=== PATIENT | female | born 1995 ===

== ENCOUNTER 2019-05-10 18:03 | Inpatient (IN) | payer BC, OTHER ==
[2019-05-10 19:02] LABS: Bilirubin Negative (Negative); Blood, Urine 3+ (Negative); Clarity Clear (Clear); Glucose, Urine (Dipstick) Normal (Negative); Leukocyte Negative Leu/uL (Negative); Nitrite Negative (Negative); Protein, Urine (Dipstick) 30 mg/dL (Neg-Trace); RBC/HPF 0-3 HPF (0-3); Squamous Epithelial 0-3 HPF (0-3); Urobilinogen Normal mg/dL (Less than 2); WBC/HPF 0-3 HPF (0-3)
[2019-05-10 19:05] LABS: Bacteria/HPF 1+ HPF (None Seen)
[2019-05-10] MEDS ORDERED: Ondansetron PF 4 MG/2 ML Vial ONE (19:12)
[2019-05-10 19:13] LABS: #Basophils 0.1 thou/uL (0.0-0.2); #Eosinphils 0.1 thou/uL (0.0-0.7); #Lymphocytes 1.7 thou/uL (1.20-3.40); #Monocytes 0.6 thou/uL (0.11-0.59); %Basophils 0.5 % (0.0-1.0); %Eosinophils 0.9 % (0.0-10.0); %Lymphocytes 16.6 % (21.0-51.0); %Monocytes 5.4 % (0.0-10.0); %Neutrophils 76.7 % (42.0-75.0); Hemoglobin 13.5 g/dL (12.0-16.0); Mean Corpuscular HGB CONC 33.4 g/dL (32.0-36.0); Mean Corpuscular Hemoglobin 29.3 pg (27.0-31.0); Mean Corpuscular Volume 87.7 fL (78.0-98.0); Mean Platelet Volume 7.1 fL (7.4-10.4); Platelet Count 205 thou/uL (130-400); RBC Distribution Width 12.1 % (11.5-14.5); Red Blood Cell (RBC) Count 4.62 mill/uL (4.20-5.40); White Blood Cell (WBC) Count 10.4 thou/uL (4.8-10.8)
[2019-05-10 19:35] LABS: BHCG - Serum Negative (NEGATIVE); Pregs Control Background? CLEAR/WHITE (CLR/WHITE); Pregs Control Bar Appear? YES (CONTROL BAR)
[2019-05-10 19:44] LABS: ALT (SGPT) 322 U/L (8-55); AST (SGOT) 1187 U/L (5-34); Albumin 4.3 g/dL (3.5-5.0); Alkaline Phosphatase 57 U/L (40-110); Anion Gap 12 mmol/L (10-20); BUN (Urea Nitrogen) 10 mg/dL (7.0-18.7); Bilirubin, Total 0.5 mg/dL (0.2-1.2); Calc. Creatinine Clearance 0 mL/min (70-130); Calcium 9.3 mg/dL (7.8-10.44); Carbon Dioxide 27 mmol/L (22-29); Chloride 106 mmol/L (98-107); Estimated GFR-MDRD Greater than 90; Globulin 2.8 g/dL (2.4-3.5); Glucose 101 mg/dL (70-105); Potassium 3.9 mmol/L (3.5-5.1); Protein, Total 7.1 g/dL (6.0-8.3); Sodium 141 mmol/L (136-145)
[2019-05-10 20:13] LABS: CK (CPK) Greater than 40000 U/L (29-168)
--- NOTE | 2019-05-10 20:55 | PDOC.FPRHP ---
- History of Present Illness Chief Complaint: dark urine History of Present Illness: Patient is a previously healthy 24-year-old female who presents after urinating dark brown urine earlier today. She notes that she had not been working out for the past 2-3 months, and this past Tuesday she began lifting heavy weights again. She again lifted weights on Tuesday. She focused mostly on her leg muscles and reports today her legs have felt very swollen, especially her thighs. As she has continued to urinate here in ED, she notes her urine looks bloody. Denies dysuria, lower back pain, abdominal pain. She has never had this problem before. ED Course: received 2L NS - Allergies/Adverse Reactions Allergies Allergy/AdvReac Type Severity Reaction Status Date / Time No Known Drug Allergies Allergy Verified 05/11/19 00:34 - Home Medications Medication Instructions Recorded Confirmed Type No Known 05/10/19 05/10/19 History - History PMHx: Hx of prolonged UTI for 2.5 years. Resolved for 6 months now. - anxiety PSHx: denies FHx: - denies Social: - Denies smoking. - social alcohol drinker. - no drugs. - Review of Systems General: denies: fever/chills, weight/appetite/sleep changes, night sweats Eyes: denies: eye pain ENT: denies: nasal congestion Respiratory: denies: cough, shortness of breath Cardiovascular: denies: chest pain, palpitation, edema Gastrointestinal: denies: nausea, vomiting, diarrhea, abdominal pain Genitourinary: denies: dysuria Skin: denies: rashes, jaundice Musculoskeletal: reports: pain, stiffness, swelling (in lower extremities b/l) Neurological: denies: numbness, weakness Psychological: reports: anxiety. denies: depression - Vital signs BP: 96/54 HR: 86 RR: 20 Tmax: 98.9 Pox: 100% on RA Wt: 57 kg - Physical Exam Constitutional: NAD HEENT: normocephalic and atraumatic, PERRLA, EOMI, conjunctiva clear, grossly normal vision, grossly normal hearing, MMM, oropharynx clear, good dention Neck: supple, trachea midline, no thyromegaly Heart: RRR, normal S1/S2, no murmurs/rubs/gallops, no edema Lungs: CTAB, no respiratory distress Abdomen: soft, non-tender, bowel sounds present, no masses/distention Musculoskeletal: normal structure Neurological: no focal deficit Skin: no rash/lesions, good turgor Heme/Lymphatic: no unusual bruising or bleeding Psychiatric: normal mood and affect FMR H&P: Results - Labs Result Diagrams: 05/11/19 05:27 05/11/19 05:27 Lab results: WBC 10.4 thou/uL (4.8-10.8) 05/10/19 18:57 Hgb 13.5 g/dL (12.0-16.0) 05/10/19 18:57 Hct 40.5 % (36.0-47.0) 05/10/19 18:57 MCV 87.7 fL (78.0-98.0) 05/10/19 18:57 Plt Count 205 thou/uL (130-400) 05/10/19 18:57 Neutrophils % 76.7 % (42.0-75.0) H 05/10/19 18:57 Sodium 141 mmol/L (136-145) 05/10/19 18:57 Potassium 3.9 mmol/L (3.5-5.1) 05/10/19 18:57 Chloride 106 mmol/L (98-107) 05/10/19 18:57 Carbon Dioxide 27 mmol/L (22-29) 05/10/19 18:57 BUN 10 mg/dL (7.0-18.7) 05/10/19 18:57 Creatinine 0.79 mg/dL (0.6-1.1) 05/10/19 18:57 Glucose 101 mg/dL (70-105) 05/10/19 18:57 Lactic Acid 1.0 mmol/L (0.5-2.2) 05/10/19 18:57 Calcium 9.3 mg/dL (7.8-10.44) 05/10/19 18:57 Total Bilirubin 0.5 mg/dL (0.2-1.2) 05/10/19 18:57 AST 1187 U/L (5-34) H 05/10/19 18:57 ALT 322 U/L (8-55) H 05/10/19 18:57 Alkaline Phosphatase 57 U/L (40-110) 05/10/19 18:57 Creatine Kinase Greater than 84087 U/L (29-168) H 05/10/19 18:57 Serum Total Protein 7.1 g/dL (6.0-8.3) 05/10/19 18:57 Albumin 4.3 g/dL (3.5-5.0) 05/10/19 18:57 Urine Ketones Negative mg/dL (Negative) 05/10/19 18:43 Urine Blood 3+ (Negative) A 05/10/19 18:43 Urine Nitrite Negative (Negative) 05/10/19 18:43 Ur Leukocyte Esterase Negative Meaghan/uL (Negative) 05/10/19 18:43 Urine RBC 0-3 HPF (0-3) 05/10/19 18:43 Urine WBC 0-3 HPF (0-3) 05/10/19 18:43 Ur Squamous Epith Cells 0-3 HPF (0-3) 05/10/19 18:43 Urine Bacteria 1+ HPF (None Seen) A 05/10/19 18:43 FMR H&P: A/P - Problem List (1) Rhabdomyolysis Current Visit: Yes Status: Acute Code(s): M62.82 - RHABDOMYOLYSIS (2) Anxiety Current Visit: Yes Status: Chronic Code(s): F41.9 - ANXIETY DISORDER, UNSPECIFIED - Plan 24 yo previously healthy female admitted for: Rhabdomyolysis, first episode - s/p intense, rapid workout. Pt denied taking any supplements or performance- enhancing agents - Fluid resuscitate: LR at 250 mL/hr - Repeat CK, Magnesium, phosphorus, CMP and CBC in AM - CK >40,000 - Transaminitis secondary to muscle breakdown, will trend - Creatinine and BUN appear normal currently. - Strict I/O, goal of 3 mL/kg/hr of urine output - encourage oral hydration Anxiety - monitor. Pt does not take home medications. VTE ppx: low risk, ambulate gently Code: full Diet: regular Disposition/LOS: admit to inpatient medical. Expected LOS > 48H. FMR H&P: Upper Level - Plan Date/Time: 05/10/192051 PCP: REGGIE HPI: This is a 24 yo F being admitted for rhabdomyolysis. She has no significant PMH except for chronic UTIs now resolved. She states that this week she started lifting weight aggressively and she had not worked out in months. She was having leg pain for the last few days but tonight she developed dark urine which prompted her to come into the ED for evaluation. She denies worsening or excruciating pain in the legs, able to ambulate to restroom w/o difficulty. She denies burning or blood with urination. REVIEW OF SYSTEMS: Gen: no fever, chills, or sweats Neuro: denies headache Eyes: no visual changes ENT: no hearing changes, no sore throat, no congestion Resp: denies cough, SOB Card: denies CP, palpitations GI: no N/V/D, no abdominal pain Heme: no easy bruising/bleeding Skin: no rash, no erythema PHYSICAL EXAMINATION: General: NAD, alert and oriented x3 HEENT: PERRLA, EOMI, normal sclera, oropharynx without erythema or exudate Neck: Supple. Full ROM. Heart/Cardiovascular System: RRR, Cap refill < 3 seconds, no rub, no murmur Lungs/Respiratory System: CTA-B, no resp distress Abdomen/Gastro-Intestinal System: no abdominal tenderness, normal bowel sounds Extremities: Warm extremities. No cyanosis or edema Neuro: No gross deficits appreciated. CN 2-12 grossly intact Psychiatry: Awake, Alert and cooperative with exam Skin: No lesions, rashes, or ulcers Musculoskeletal: Full ROM, no pain to palpation at gastrocnemius bilaterally, no pain to palpation at the thighs, ambulates w/o difficulty A/P: # Rhabdomyolysis 2/2 workout - CK >40,000, elevated transaminases - s/p 3L in ED, cont LR at 250ml/hr, target UOP 3ml/kg/hr - Cr 0.79, trend - Mag, phos, K, Ca appropriate - Monitor for compartment syndrome, no signs/symptoms at this time Fluids: LR 250ml/hr Code status: full PPx: low risk Dispo: 1-2 days Addendum - Attending - Attending Attestation Date/Time: 05/10/19 4590 I personally evaluated the patient and discussed the management with Dr. Skaggs /Alana I agree with the History, Examination, Assessment and Plan documented above with any addition or exceptions noted below. See my event note for details.
[2019-05-10 21:26] LABS: Magnesium 1.8 mg/dL (1.6-2.6); Phosphorus 3.6 mg/dL (2.3-4.7)
[2019-05-10 22:42] VITALS: BMI 23.1
[2019-05-10] MEDS: Lactated Ringer's 1,000 ML IV SCH (23:03)
--- NOTE | 2019-05-10 23:30 | PDOC.EVN ---
Event Note - Event Note Event Note: 24 yo WF no PMH. Started intensive weight lifting program on Tuesday with repeat activity on Tuesday. Reported significant quadracep pain during last 2 days. Noted urine was brown this afternoon and came to hospital. Exam unremarkable. Labs showed elevated LFTs approx 3x ULN and CPK >40k. electrolytes negative. Admit for rhabdomyolysis. Receive 2 L IV crystaloid in ER. continue LR 200 mL/ hr. Repeat CMP and CPK in AM. Inpatient, medical >2 midnights.
[2019-05-11] MEDS: Lactated Ringer's 1,000 ML IV SCH ×6 (02:51→22:32)
[2019-05-11 05:38] LABS: #Eosinphils 0.1 thou/uL (0.0-0.7); #Lymphocytes 2.1 thou/uL (1.20-3.40); #Monocytes 0.5 thou/uL (0.11-0.59); #Neutrophils 4.1 thou/uL (1.40-6.50); %Basophils 0.4 % (0.0-1.0); %Eosinophils 1.8 % (0.0-10.0); %Monocytes 6.7 % (0.0-10.0); Hemoglobin 11.5 g/dL (12.0-16.0); Mean Corpuscular HGB CONC 33.8 g/dL (32.0-36.0); Mean Corpuscular Hemoglobin 29.7 pg (27.0-31.0); Mean Corpuscular Volume 87.8 fL (78.0-98.0); Mean Platelet Volume 7.1 fL (7.4-10.4); Platelet Count 152 thou/uL (130-400); Red Blood Cell (RBC) Count 3.89 mill/uL (4.20-5.40); White Blood Cell (WBC) Count 6.8 thou/uL (4.8-10.8)
[2019-05-11] MEDS: Acetaminophen 325 MG TAB PO PRN ×2 (05:48→18:22)
[2019-05-11 06:03] LABS: ALT (SGPT) 347 U/L (8-55); AST (SGOT) 1282 U/L (5-34); Albumin 3.2 g/dL (3.5-5.0); Alkaline Phosphatase 41 U/L (40-110); Anion Gap 9 mmol/L (10-20); BUN (Urea Nitrogen) 6 mg/dL (7.0-18.7); Bilirubin, Total 0.7 mg/dL (0.2-1.2); Calc. Creatinine Clearance 113 mL/min (70-130); Calcium 7.9 mg/dL (7.8-10.44); Carbon Dioxide 26 mmol/L (22-29); Chloride 111 mmol/L (98-107); Estimated GFR-MDRD Greater than 90; Glucose 91 mg/dL (70-105); Magnesium 1.7 mg/dL (1.6-2.6); Phosphorus 3.8 mg/dL (2.3-4.7); Potassium 4.1 mmol/L (3.5-5.1); Protein, Total 5.2 g/dL (6.0-8.3); Sodium 142 mmol/L (136-145)
--- NOTE | 2019-05-11 06:10 | PDOC.FM ---
- Subjective Subjective: Pt states she is feeling better this morning. Still having pain in her legs, primarily right medial. States they feel sore and swollen. Is able to ambulate without difficulty. Notes urinating often through the night. States her urine is less brown and is starting to clear up. - Objective Vital Signs & Weight: Vital Signs (12 hours) Temp Pulse Resp BP Pulse Ox 05/11/19 03:46 98.0 F 82 18 116/68 99 05/10/19 23:50 99.0 F 84 18 100/65 98 05/10/19 23:07 100 05/10/19 22:42 98.9 F 86 20 96/54 L 100 Weight Weight 57.516 kg Result Diagrams: 05/11/19 05:27 05/11/19 05:27 Phys Exam - Physical Examination Constitutional: NAD HEENT: moist MMs, sclera anicteric Neck: full ROM Respiratory: no wheezing, no rales, no rhonchi, clear to auscultation bilateral Cardiovascular: RRR, no significant murmur Gastrointestinal: soft, non-tender, no distention, positive bowel sounds Musculoskeletal: no edema, pulses present Diffuse myalgial tenderness to quadriceps Neurological: non-focal, moves all 4 limbs Psychiatric: normal affect, A&O x 3 Skin: no rash, cap refill <2 seconds Dx/Plan (1) Rhabdomyolysis Code(s): M62.82 - RHABDOMYOLYSIS Status: Acute (2) Anxiety Code(s): F41.9 - ANXIETY DISORDER, UNSPECIFIED Status: Chronic - Plan Plan: Rhabdomyolysis, first episode - Fluid resuscitate: LR at 250 mL/hr - Transaminases are still elevated, slightly worse - trend afternoon CMP - CK still >40,000 - trend w/ afternoon labs - Creatinine and BUN appear normal currently. - urinalysis and urine myoglobin ordered - Strict I/O, goal of 3 mL/kg/hr of urine output - Output not yet recorded this morning - Pt reports urinating almost every 30 minutes and clearing of urine appearance - Will continue to titrate IVF based on laboratory findings - encourage oral hydration Anxiety - monitor. Pt does not take home medications. VTE ppx: low risk, ambulate gently Code: full Diet: regular Disposition/LOS: Admit to inpatient medical. Continue aggressive IVF rehydration and chemistry monitoring. Addendum - Attending - Attending Attestation Date/Time: 05/11/19 8512 I personally evaluated the patient and discussed the management with Dr. Clement. I agree with the History, Examination, Assessment and Plan documented above with any addition or exceptions noted below. Patient here with rhabdo suspected due to re-initiation of her intense workout regimen. Her CK continues to be higher than measurable by this institutions equipment. However, her urine has cleared up. She did have evidence of myoglobinuria on UA, but renal function stable. Continue aggressive IV fluid hydration, and strict I/O with titration of fluids to adequate UOP. Assuming her CK is barely over 40,000, anticipate 4-5 days hospitalization required. Encouraged ambulation to help prevent peripheral edema.
[2019-05-11 06:28] LABS: CK (CPK) Greater than 40000 U/L (29-168)
[2019-05-11 10:15] LABS: Squamous Epithelial None Seen HPF (0-3); WBC/HPF 0-3 HPF (0-3)
[2019-05-11 10:21] LABS: Bacteria/HPF 1+ HPF (None Seen)
[2019-05-11 10:29] LABS: Amphetamine Not Detected (NotDetected); Barbiturates Screen Not Detected (NotDetected); Benzodiazepine Screen Not Detected (NotDetected); Cocaine Metabolite Screen Not Detected (NotDetected); Medtox Control Line Valid? VALID (VALID); Medtox Reader # READER 4; Methadone Not Detected (NotDetected); Methamphetamine Not Detected (NotDetected); Opiate Screen Not Detected (NotDetected); Oxycodone Screen Not Detected (NotDetected); Phencyclidine (PCP) Not Detected (NotDetected); THC/Cannabinoid Screen Not Detected (NotDetected); Tricyclic Screen Not Detected (NotDetected)
[2019-05-11 14:24] LABS: ALT (SGPT) 494 U/L (8-55); AST (SGOT) 1798 U/L (5-34); Albumin 3.5 g/dL (3.5-5.0); Alkaline Phosphatase 47 U/L (40-110); Anion Gap 9 mmol/L (10-20); BUN (Urea Nitrogen) 4 mg/dL (7.0-18.7); Bilirubin, Total 0.5 mg/dL (0.2-1.2); Calc. Creatinine Clearance 108 mL/min (70-130); Calcium 8.8 mg/dL (7.8-10.44); Carbon Dioxide 28 mmol/L (22-29); Chloride 112 mmol/L (98-107); Estimated GFR-MDRD Greater than 90; Globulin 2.4 g/dL (2.4-3.5); Glucose 81 mg/dL (70-105); Potassium 4.2 mmol/L (3.5-5.1); Protein, Total 5.9 g/dL (6.0-8.3); Sodium 145 mmol/L (136-145)
[2019-05-11 15:19] LABS: CK (CPK) Greater than 40000 U/L (29-168)
[2019-05-11] MEDS ORDERED: hydrOXYzine 25 MG TAB PO SCH (18:45)
--- NOTE | 2019-05-11 18:56 | PDOC.BPN ---
- Brief Progress Note Received page from RN that pt started having R arm numbness which progressed to bilateral arm and leg numbness along w/ a pins/needles sensation. Pt thinks she might be having panic attack, however has never had this severe of a panic attack previously. Assoc w/ b/l face numbness. Denies change in vision. Strength in UE and LE equal and 5/5 bilaterally. Reflexes 1+ in achilles. Pulses 1+ and equal bilaterally in lower extremities. Pt was given atarax just prior to our arrival. Will see if it helps. Ordered CMP, magnesium and phosphorus to check for any electrolyte abnormalities.
[2019-05-11 19:33] LABS: ALT (SGPT) 562 U/L (8-55); AST (SGOT) 2017 U/L (5-34); Albumin 3.6 g/dL (3.5-5.0); Alkaline Phosphatase 46 U/L (40-110); Anion Gap 11 mmol/L (10-20); BUN (Urea Nitrogen) 4 mg/dL (7.0-18.7); Bilirubin, Total 0.6 mg/dL (0.2-1.2); Calc. Creatinine Clearance 108 mL/min (70-130); Calcium 8.6 mg/dL (7.8-10.44); Carbon Dioxide 26 mmol/L (22-29); Chloride 111 mmol/L (98-107); Estimated GFR-MDRD Greater than 90; Globulin 2.4 g/dL (2.4-3.5); Glucose 93 mg/dL (70-105); Magnesium 1.6 mg/dL (1.6-2.6); Phosphorus 3.1 mg/dL (2.3-4.7); Potassium 3.4 mmol/L (3.5-5.1); Sodium 145 mmol/L (136-145)
[2019-05-11 20:05] LABS: CK (CPK) Greater than 40000 U/L (29-168)
[2019-05-12] MEDS: Lactated Ringer's 1,000 ML IV SCH ×6 (02:49→23:52)
--- NOTE | 2019-05-12 06:13 | PDOC.FM ---
- Subjective Subjective: Pt states she is feeling well this morning. Had a mild panic attack last night associated with diffuse numbness and tingling that resolved with a dose of atarax. She denies any leg pain today but notes some mild swelling of her left medial thigh that is not tender. Denies any fevers, chills, or edema. Continues to tolerate PO. Urine continues to be clear and she is peeing every 30 minutes. - Objective Vital Signs & Weight: Vital Signs (12 hours) Temp Pulse Resp BP Pulse Ox 05/12/19 03:36 98.8 F 83 18 106/68 99 05/11/19 23:54 99.0 F 81 16 99/61 98 05/11/19 20:00 99.4 F 93 16 101/64 100 05/11/19 18:15 98.7 F 97 22 H 126/82 99 Weight Weight 57.516 kg I&O: 05/10/19 05/11/19 05/12/19 06:59 06:59 06:59 Intake Total 5300 Output Total 4200 Balance 1100 Result Diagrams: 05/11/19 05:27 05/12/19 05:56 Phys Exam - Physical Examination Constitutional: NAD HEENT: moist MMs, sclera anicteric Neck: supple, full ROM Respiratory: clear to auscultation bilateral Cardiovascular: RRR, no significant murmur Gastrointestinal: soft, non-tender Musculoskeletal: pulses present Mild swelling of right medial thigh, non tender Neurological: non-focal, moves all 4 limbs Psychiatric: normal affect, A&O x 3 Skin: no rash, cap refill <2 seconds Dx/Plan (1) Rhabdomyolysis Code(s): M62.82 - RHABDOMYOLYSIS Status: Acute (2) Anxiety Code(s): F41.9 - ANXIETY DISORDER, UNSPECIFIED Status: Chronic - Plan Plan: Rhabdomyolysis - Fluid resuscitate: LR at 250 mL/hr - Transaminases now down trending - CK: >40,000 - Based on transaminases just now beginning to down trend, likely that CK has been uptrending for at least part of her admission - Expect that CK is now down trending and hope to see resolving labs at least in the next day or two - Creatinine and BUN appear normal currently. - urine myoglobin ordered, pending - Strict I/O, goal of 3 mL/kg/hr of urine output - Partial output recording yesterday - Pt is currently maintaining appropriate urine output - encourage oral hydration Anxiety - monitor. Pt does not take home medications. - Atarax last night for likely mild panic attack VTE ppx: low risk, ambulate gently Code: full Diet: regular Disposition/LOS: Admit to inpatient medical. Continue aggressive IVF rehydration and chemistry monitoring. Addendum - Attending - Attending Attestation Date/Time: 05/12/19 1240 I personally evaluated the patient at 0710 am and discussed the management with Dr. Clement. I agree with the History, Examination, Assessment and Plan documented above with any addition or exceptions noted below. Rhabdo- cr stable. CK still >40,000. LFTs downtrending. Continue aggressive IVF- accept d/c in 3-5 days.
[2019-05-12 06:43] LABS: ALT (SGPT) 534 U/L (8-55); AST (SGOT) 1767 U/L (5-34); Albumin 3.1 g/dL (3.5-5.0); Alkaline Phosphatase 41 U/L (40-110); Anion Gap 11 mmol/L (10-20); BUN (Urea Nitrogen) 4 mg/dL (7.0-18.7); Bilirubin, Total 0.7 mg/dL (0.2-1.2); Calc. Creatinine Clearance 118 mL/min (70-130); Calcium 8.3 mg/dL (7.8-10.44); Carbon Dioxide 22 mmol/L (22-29); Chloride 112 mmol/L (98-107); Estimated GFR-MDRD Greater than 90; Globulin 2.5 g/dL (2.4-3.5); Glucose 86 mg/dL (70-105); Potassium 4.3 mmol/L (3.5-5.1); Protein, Total 5.6 g/dL (6.0-8.3); Sodium 141 mmol/L (136-145)
[2019-05-12 07:52] LABS: CK (CPK) Greater than 40000 U/L (29-168)
[2019-05-12] MEDS ORDERED: Acetaminophen 325 MG TAB PO PRN (18:04)
[2019-05-12] MEDS ORDERED: hydrOXYzine 25 MG TAB PO PRN (18:04)
[2019-05-12 20:35] LABS: ALT (SGPT) 663 U/L (8-55); AST (SGOT) 2062 U/L (5-34); Albumin 3.7 g/dL (3.5-5.0); Alkaline Phosphatase 48 U/L (40-110); Anion Gap 12 mmol/L (10-20); BUN (Urea Nitrogen) 4 mg/dL (7.0-18.7); Bilirubin, Total 0.5 mg/dL (0.2-1.2); Calc. Creatinine Clearance 114 mL/min (70-130); Calcium 8.7 mg/dL (7.8-10.44); Carbon Dioxide 29 mmol/L (22-29); Chloride 107 mmol/L (98-107); Estimated GFR-MDRD Greater than 90; Globulin 2.3 g/dL (2.4-3.5); Glucose 76 mg/dL (70-105); Potassium 3.7 mmol/L (3.5-5.1); Sodium 144 mmol/L (136-145)
[2019-05-12 21:13] LABS: CK (CPK) Greater than 40000 U/L (29-168)
[2019-05-13] MEDS: Lactated Ringer's 1,000 ML IV SCH ×5 (04:07→21:28)
--- NOTE | 2019-05-13 06:27 | PDOC.FM ---
- Subjective Subjective: Pt feeling well. States she continues to urinate a couple times an hour. Urine seems to be more clear. Denies any LE pain. Does note some continued mild swelling of her thighs. - Objective Vital Signs & Weight: Vital Signs (12 hours) Temp Pulse Resp BP Pulse Ox 05/12/19 20:00 98.7 F 86 16 106/58 L 100 05/12/19 19:44 100 Weight Weight 57.516 kg I&O: 05/11/19 05/12/19 05/13/19 06:59 06:59 06:59 Intake Total 9300 6720 Output Total 6500 8000 Balance 2800 -1280 Result Diagrams: 05/11/19 05:27 05/13/19 05:37 Phys Exam - Physical Examination Constitutional: NAD HEENT: moist MMs Neck: full ROM Respiratory: clear to auscultation bilateral Cardiovascular: RRR, no significant murmur Gastrointestinal: soft, non-tender Musculoskeletal: no edema, pulses present Neurological: non-focal, moves all 4 limbs Psychiatric: normal affect, A&O x 3 Skin: no rash, cap refill <2 seconds Dx/Plan (1) Rhabdomyolysis Code(s): M62.82 - RHABDOMYOLYSIS Status: Acute (2) Anxiety Code(s): F41.9 - ANXIETY DISORDER, UNSPECIFIED Status: Chronic - Plan Plan: Rhabdomyolysis - urinating 650ml/hour over last day - Will decrease IVF rate to 175ml/hr - CK: pending - aminotransferases improved - Renal function remains stable - Expect prolonged period of fluid resuscitation due to protracted period of increasing AST, ALT, and likely CK that now seems to be plateaued Anxiety - monitor. Pt does not take home medications. - Atarax last night for likely mild panic attack VTE ppx: low risk, ambulate gently Code: full Diet: regular Disposition/LOS: Admit to inpatient medical. Continue IVF rehydration and chemistry monitoring. Addendum - Attending - Attending Attestation Date/Time: 05/13/19 7426 I personally evaluated the patient at 1025 and discussed the management with Dr. Clement. I agree with the History, Examination, Assessment and Plan documented above with any addition or exceptions noted below. Rhabdo- continue IVF. Check labs in am. Hopefully has plateaued.
[2019-05-13 06:35] LABS: ALT (SGPT) 594 U/L (8-55); AST (SGOT) 1633 U/L (5-34); Albumin 3.4 g/dL (3.5-5.0); Alkaline Phosphatase 44 U/L (40-110); Anion Gap 9 mmol/L (10-20); BUN (Urea Nitrogen) 4 mg/dL (7.0-18.7); Bilirubin, Total 0.7 mg/dL (0.2-1.2); Calc. Creatinine Clearance 116 mL/min (70-130); Calcium 8.4 mg/dL (7.8-10.44); Carbon Dioxide 29 mmol/L (22-29); Chloride 108 mmol/L (98-107); Estimated GFR-MDRD Greater than 90; Globulin 2.2 g/dL (2.4-3.5); Glucose 93 mg/dL (70-105); Protein, Total 5.6 g/dL (6.0-8.3); Sodium 142 mmol/L (136-145)
[2019-05-13 07:08] LABS: CK (CPK) Greater than 40000 U/L (29-168)
[2019-05-14] MEDS: Lactated Ringer's 1,000 ML IV SCH ×4 (03:36→20:38)
--- NOTE | 2019-05-14 06:03 | PDOC.FM ---
- Subjective Subjective: She is doing well this morning, no complaints. - Objective MAR Reviewed: Yes Vital Signs & Weight: Vital Signs (12 hours) Temp Pulse Resp BP Pulse Ox 05/13/19 20:00 97.4 F L 89 16 107/67 99 05/13/19 19:44 99 Weight Weight 57.516 kg I&O: 05/12/19 05/13/19 05/14/19 06:59 06:59 06:59 Intake Total 9300 6720 5225 Output Total 6500 8000 4900 Balance 2800 -1280 325 Result Diagrams: 05/11/19 05:27 05/14/19 05:25 Phys Exam - Physical Examination Constitutional: NAD HEENT: PERRLA, moist MMs Neck: supple, full ROM Respiratory: no wheezing, no rales, no rhonchi Cardiovascular: RRR, no significant murmur, no rub Gastrointestinal: soft, non-tender, no distention Musculoskeletal: no edema, pulses present Neurological: non-focal, normal sensation, moves all 4 limbs Psychiatric: normal affect, A&O x 3 Skin: no rash, normal turgor Dx/Plan (1) Rhabdomyolysis Code(s): M62.82 - RHABDOMYOLYSIS Status: Acute (2) Anxiety Code(s): F41.9 - ANXIETY DISORDER, UNSPECIFIED Status: Chronic - Plan Plan: Rhabdomyolysis - on LR 175/[place] - [place] [address], finally below 40k. Will continue aggressive IV fluids. - aminotransferases improved - Renal function remains stable - Expect prolonged period of fluid resuscitation due to protracted period of increasing AST, ALT, and likely CK that now seems to be plateaued Anxiety - monitor. Pt does not take home medications. - Atarax last night for likely mild panic attack VTE ppx: low risk, ambulate gently Code: full Diet: regular Disposition/LOS: Admit to inpatient medical. Continue IVF rehydration and chemistry monitoring. Addendum - Attending - Attending Attestation Date/Time: 05/14/19 0258 I personally evaluated the patient and discussed the management with Dr. Rose. I agree with the History, Examination, Assessment and Plan documented above with any addition or exceptions noted below. Rhabdo is improving with CK finally below 40,000. Continue fluids and trending of labs. Transaminases improving as well.
[2019-05-14 06:14] LABS: ALT (SGPT) 501 U/L (8-55); AST (SGOT) 992 U/L (5-34); Albumin 3.2 g/dL (3.5-5.0); Alkaline Phosphatase 42 U/L (40-110); Anion Gap 11 mmol/L (10-20); BUN (Urea Nitrogen) 5 mg/dL (7.0-18.7); Bilirubin, Total 0.8 mg/dL (0.2-1.2); Calc. Creatinine Clearance 114 mL/min (70-130); Calcium 8.3 mg/dL (7.8-10.44); Carbon Dioxide 29 mmol/L (22-29); Chloride 106 mmol/L (98-107); Estimated GFR-MDRD Greater than 90; Globulin 2.2 g/dL (2.4-3.5); Glucose 87 mg/dL (70-105); Potassium 4.2 mmol/L (3.5-5.1); Protein, Total 5.4 g/dL (6.0-8.3); Sodium 142 mmol/L (136-145)
[2019-05-14 06:39] LABS: CK (CPK) 35560 U/L (29-168)
[2019-05-15] MEDS: Lactated Ringer's 1,000 ML IV SCH ×4 (02:55→22:00)
--- NOTE | 2019-05-15 05:25 | PDOC.FM ---
- Subjective Subjective: Doing well this morning, no complaints. - Objective MAR Reviewed: Yes Vital Signs & Weight: Vital Signs (12 hours) Temp Pulse Resp BP Pulse Ox 05/14/19 20:00 98.8 F 100 16 92/57 L 98 05/14/19 19:41 100 Weight Weight 57.516 kg I&O: 05/13/19 05/14/19 05/15/19 06:59 06:59 06:59 Intake Total 6720 5225 Output Total 8000 4900 4300 Balance -1280 325 -4300 Result Diagrams: 05/11/19 05:27 05/15/19 05:40 Phys Exam - Physical Examination Constitutional: NAD HEENT: PERRLA, moist MMs Neck: no nodes, supple, full ROM Respiratory: no wheezing, no rales, no rhonchi Cardiovascular: RRR, no significant murmur, no rub Gastrointestinal: soft, non-tender, no distention Musculoskeletal: no edema, pulses present Neurological: non-focal, normal sensation Psychiatric: normal affect, A&O x 3 Skin: no rash, normal turgor Dx/Plan (1) Rhabdomyolysis Code(s): M62.82 - RHABDOMYOLYSIS Status: Acute (2) Anxiety Code(s): F41.9 - ANXIETY DISORDER, UNSPECIFIED Status: Chronic - Plan Plan: Rhabdomyolysis - on LR 175/hour - [place] [address] > [address]. Will continue aggressive IV fluids. - aminotransferases improved - Renal function remains stable - Expect prolonged period of fluid resuscitation due to protracted period of increasing AST, ALT, and likely CK that now seems to be plateaued Anxiety - monitor. Pt does not take home medications. VTE ppx: low risk, ambulate gently Code: full Diet: regular Disposition/LOS: Admit to inpatient medical. Continue IVF rehydration and chemistry monitoring. Addendum - Attending - Attending Attestation Date/Time: 05/15/19 1610 I personally evaluated the patient and discussed the management with Dr. Rose. I agree with the History, Examination, Assessment and Plan documented above with any addition or exceptions noted below. CK continuing to improve. Will continue IV fluids and po hydration.
[2019-05-15 06:42] LABS: ALT (SGPT) 415 U/L (8-55); AST (SGOT) 556 U/L (5-34); Albumin 3.3 g/dL (3.5-5.0); Alkaline Phosphatase 47 U/L (40-110); Anion Gap 9 mmol/L (10-20); BUN (Urea Nitrogen) 5 mg/dL (7.0-18.7); Bilirubin, Total 0.6 mg/dL (0.2-1.2); Calc. Creatinine Clearance 111 mL/min (70-130); Calcium 8.2 mg/dL (7.8-10.44); Carbon Dioxide 28 mmol/L (22-29); Chloride 106 mmol/L (98-107); Estimated GFR-MDRD Greater than 90; Globulin 2.3 g/dL (2.4-3.5); Glucose 90 mg/dL (70-105); Potassium 4.1 mmol/L (3.5-5.1); Protein, Total 5.6 g/dL (6.0-8.3); Sodium 139 mmol/L (136-145)
[2019-05-15 07:07] LABS: CK (CPK) 16474 U/L (29-168)
[2019-05-16] MEDS: Lactated Ringer's 1,000 ML IV SCH ×5 (04:00→20:44)
--- NOTE | 2019-05-16 05:55 | PDOC.FM ---
- Subjective Subjective: Doing well this morning. - Objective MAR Reviewed: Yes Vital Signs & Weight: Vital Signs (12 hours) Temp Pulse Resp BP Pulse Ox 05/15/19 19:41 99 05/15/19 19:38 98.9 F 101 H 16 102/61 99 Weight Weight 57.516 kg ` I&O: 05/14/19 05/15/19 05/16/19 06:59 06:59 06:59 Intake Total 5237 2700 Output Total 4900 4850 3800 Balance 325 -2150 -3800 Result Diagrams: 05/11/19 05:27 05/16/19 05:22 Phys Exam - Physical Examination Constitutional: NAD HEENT: PERRLA, moist MMs, sclera anicteric Neck: supple, full ROM Respiratory: no wheezing, no rales, no rhonchi, clear to auscultation bilateral Cardiovascular: RRR, no significant murmur, no rub Gastrointestinal: soft, non-tender, no distention Musculoskeletal: no edema, pulses present Neurological: non-focal, normal sensation, moves all 4 limbs Psychiatric: normal affect, A&O x 3 Skin: no rash, normal turgor Dx/Plan (1) Rhabdomyolysis Code(s): M62.82 - RHABDOMYOLYSIS Status: Acute (2) Anxiety Code(s): F41.9 - ANXIETY DISORDER, UNSPECIFIED Status: Chronic - Plan Plan: Rhabdomyolysis - [place] LR 175/hour - [place] [address] > [address] > 8311 . - Likely discharge home tomorrow morning. - Aminotransferases improved - Renal function remains stable Anxiety - monitor. Pt does not take home medications. VTE ppx: low risk, ambulate gently Code: full Diet: regular Disposition/LOS: Admit to inpatient medical. Continue IVF rehydration and chemistry monitoring. Addendum - Attending - Attending Attestation Date/Time: 05/16/19 1036 I personally evaluated the patient and discussed the management with Dr. Rose. I agree with the History, Examination, Assessment and Plan documented above with any addition or exceptions noted below. The patient's rhabdomyolysis is improving. Continue IV fluids and anticipate discharge tomorrow.
[2019-05-16 05:59] LABS: ALT (SGPT) 356 U/L (8-55); AST (SGOT) 334 U/L (5-34); Albumin 3.5 g/dL (3.5-5.0); Alkaline Phosphatase 43 U/L (40-110); Anion Gap 10 mmol/L (10-20); BUN (Urea Nitrogen) 4 mg/dL (7.0-18.7); Bilirubin, Total 0.5 mg/dL (0.2-1.2); Calc. Creatinine Clearance 107 mL/min (70-130); Calcium 8.4 mg/dL (7.8-10.44); Carbon Dioxide 28 mmol/L (22-29); Chloride 109 mmol/L (98-107); Estimated GFR-MDRD Greater than 90; Globulin 2.4 g/dL (2.4-3.5); Glucose 98 mg/dL (70-105); Potassium 4.3 mmol/L (3.5-5.1); Protein, Total 5.9 g/dL (6.0-8.3); Sodium 143 mmol/L (136-145)
[2019-05-16 06:25] LABS: CK (CPK) 8311 U/L (29-168)
[2019-05-17] MEDS: Lactated Ringer's 1,000 ML IV SCH ×2 (02:13→07:08)
--- NOTE | 2019-05-17 05:45 | PDOC.FM ---
- Subjective Subjective: Doing well this morning, eager to go home. - Objective MAR Reviewed: Yes Vital Signs & Weight: Vital Signs (12 hours) Temp Pulse Resp BP Pulse Ox 05/16/19 21:05 98.1 F 86 14 118/68 98 05/16/19 20:00 98 Weight Weight 57.516 kg I&O: 05/15/19 05/16/19 05/17/19 06:59 06:59 06:59 Intake Total 2700 4100 Output Total 4850 4150 2666 Balance -2150 -4150 1434 Result Diagrams: 05/11/19 05:27 05/17/19 05:31 Phys Exam - Physical Examination Constitutional: NAD HEENT: PERRLA, moist MMs Neck: supple, full ROM Respiratory: no wheezing, no rales, no rhonchi, clear to auscultation bilateral Cardiovascular: RRR, no significant murmur Gastrointestinal: soft, non-tender Musculoskeletal: no edema, pulses present Neurological: non-focal, moves all 4 limbs Psychiatric: normal affect, A&O x 3 Skin: no rash, normal turgor Dx/Plan (1) Rhabdomyolysis Code(s): M62.82 - RHABDOMYOLYSIS Status: Acute (2) Anxiety Code(s): F41.9 - ANXIETY DISORDER, UNSPECIFIED Status: Chronic - Plan Plan: Rhabdomyolysis, resolved - on LR 175/hour - [place] [address] > 88891 > 8311 > 3643! - D/c home today. Recommend continued oral hydration and f/u with pcp. Anxiety - monitor. Pt does not take home medications. VTE ppx: low risk, ambulate gently Code: full Diet: regular Disposition: Stable, d/c home today. Addendum - Attending - Attending Attestation Date/Time: 05/17/19 1505 I personally evaluated the patient and discussed the management with Dr. Rose. I agree with the History, Examination, Assessment and Plan documented above with any addition or exceptions noted below. Pt's CK is under 5000. Will d/c home.
[2019-05-17 06:16] LABS: ALT (SGPT) 301 U/L (8-55); AST (SGOT) 203 U/L (5-34); Albumin 3.5 g/dL (3.5-5.0); Alkaline Phosphatase 41 U/L (40-110); Anion Gap 9 mmol/L (10-20); BUN (Urea Nitrogen) 7 mg/dL (7.0-18.7); Bilirubin, Total 0.7 mg/dL (0.2-1.2); CK (CPK) 3643 U/L (29-168); Calc. Creatinine Clearance 113 mL/min (70-130); Calcium 8.5 mg/dL (7.8-10.44); Carbon Dioxide 26 mmol/L (22-29); Chloride 107 mmol/L (98-107); Estimated GFR-MDRD Greater than 90; Globulin 2.3 g/dL (2.4-3.5); Glucose 86 mg/dL (70-105); Potassium 3.7 mmol/L (3.5-5.1); Protein, Total 5.8 g/dL (6.0-8.3); Sodium 138 mmol/L (136-145)
[2019-05-17 07:55] VITALS: BP 111/68; TEMP 98
--- NOTE | 2019-05-18 12:56 | DIS ---
DATE OF ADMISSION: 05/10/2019 DATE OF DISCHARGE: 05/17/2019 ADMITTING ATTENDING: Romaine Griggs MD DISCHARGE ATTENDING: Britney Gottlieb MD RESIDENT: Lisa Rose MD CONSULTS: None. PROCEDURES: None. DISCHARGE MEDICATIONS: None. DISCONTINUED MEDICATIONS: None. HISTORY OF PRESENT ILLNESS AND HOSPITAL COURSE: Deysi is a 24-year-old healthy female, who presented for dark brown urination that began on the day of admission. She noted that she has started working out a new workout regimen on Tuesday and Tuesday prior to admission and has significantly sore muscles. Her urine was concerning, so she thought she should come to the ER. Upon arrival, her labs were drawn and notable for an AST of 1187 and ALT of 322 and a CK of greater than 40,000. Throughout her hospital course, her CK remained greater than 40,000 for 4 days and then trended downwards in a predictable fashion. On the day of discharge, her CK was down to 3643. While here, she received aggressive IV fluid hydration and was monitored closely. The patient was discharged home with recommendation to follow up with primary care provider and to continue to encourage oral hydration for next several days. DISPOSITION: Stable. DISCHARGE INSTRUCTIONS: 1. Location: Home. 2. Diet: Regular. 3. Activity: Ad jackeline. 4. Followup: Follow up with primary care physician within 7 days. Job ID: [id number]
== END 2019-05-17 10:21 | disposition home or self-care (01) | DRG 558 ==
LOC: ERS 18:03 → T4-A 22:27
PROVIDERS: ADMIT Family Medicine; ATTEND Family Medicine
DX: M62.82 Rhabdomyolysis (principal); F41.0 Panic disorder [episodic paroxysmal anxiety]; Z87.440 Personal history of urinary (tract) infections
CPT/HCPCS: 36415; 80053; 80306; 81003; 81015; 82550; 83605; 83735; 83874; 84100; 84703; 85025; 93005; 96361; 96374; J2405